=== PATIENT | female | born 1995 | race American Indian/Alaskan Native ===

== ENCOUNTER 2017-04-20 23:29 | Emergency (ER) | payer SELFPAY ==
[2017-04-21 00:04] VITALS: BP 117/72
[2017-04-21 00:42] LABS: Basophils % (Auto) 0.4 % (0.0-1.8); Eosinophils % (Auto) 1.2 % (0.0-4.3); Hematocrit 34.1 % (30.3-42.9); Hemoglobin 11.4 gm/dl (10.1-14.3); Mean Corpuscular HGB Conc 34 % (30-34); Mean Corpuscular Hemoglobin 33 pg (28-32); Mean Corpuscular Volume 97 fl (79-97); Platelet Count 329 K/mm3 (140-440); Red Blood Count 3.51 M/mm3 (3.65-5.03); Red Cell Distribution Width 12.8 % (13.2-15.2); White Blood Count 10.5 K/mm3 (4.5-11.0)
[2017-04-21 01:04] LABS: Alanine Aminotransferase 6 units/L (7-56); Albumin 4.9 g/dL (3.9-5); Albumin/Globulin Ratio 1.6 %; Alkaline Phosphatase 36 units/L (35-129); BUN/Creatinine Ratio 18; Blood Urea Nitrogen 11 mg/dL (7-17); Calcium 9.4 mg/dL (8.4-10.2); Carbon Dioxide 21 mmol/L (22-30); Glucose 125 mg/dL (65-100); Total Protein 7.9 g/dL (6.3-8.2)
[2017-04-21 01:05] LABS: Anion Gap 20 mmol/L; Lipase 25 units/L (13-60); Potassium 3.5 mmol/L (3.6-5.0); Sodium 140 mmol/L (137-145)
--- NOTE | 2017-04-21 02:17 | Ultrasound Report ---
FINAL REPORT EXAM: US OB TRANSVAGINAL HISTORY: pelvic pain, Vag bleed TECHNIQUE: Transvaginal imaging was obtained of the pelvis including Doppler interrogation of the adnexa. FINDINGS: The uterus measures 9.4 cm x 3.6 cm x 4.3 cm. The endometrial thickness is 15.4 millimeters. There is no evidence of an intrauterine gestational sac. The cervix is closed. The right ovary measures 4 cm x 1.8 cm x 3 cm and contains benign follicles. The blood flow is normal to the right ovary. There is a small amount of free fluid adjacent to the right ovary. The left ovary measures 3.8 cm x 1.9 cm x 2.9 cm. The blood flow is normal to left ovary. There are benign follicles in the left ovary. IMPRESSION: Secretory endometrium without evidence of an intrauterine . Small amount of free fluid adjacent to the right ovary. A given the positive test, and occult ectopic still cannot entirely be ruled out.
--- NOTE | 2017-04-21 02:25 | Ultrasound Report ---
FINAL REPORT EXAM: US OB < = 14 WEEKS FETUS HISTORY: pelvic pain, Vag bleed TECHNIQUE: Transabdominal imaging was obtained of the pelvis including Doppler interrogation of the adnexa FINDINGS: The uterus measures 9.4 cm x 3.6 cm x 4.3 cm. There is secretory endometrium measuring 15.4 millimeters in thickness. There is no evidence of an intrauterine gestational sac. The cervix is closed. The right ovary measures 4 cm x 1.8 cm x 3 cm. There is a small amount of free fluid adjacent to the right ovary. The right ovary otherwise reveals normal blood flow and contains benign follicles. The left ovary measures 3.8 cm x 1.9 cm x 2.9 cm and contains benign-appearing follicles. The blood flow is normal to left ovary. IMPRESSION: Thickened endometrium without evidence of intrauterine gestational sac Small amount of free fluid adjacent to the right ovary. Given the positive test, and occult ectopic cannot entirely be ruled out. Follow-up study recommended.
== END 2017-04-21 02:43 | disposition left against medical advice (07) ==
LOC: ED 23:29
DX: O46.90 Antepartum hemorrhage, unspecified, unspecified trimester (principal); Z3A.00 Weeks of gestation of pregnancy not specified; Z53.21 Procedure and treatment not carried out due to patient leaving prior to being seen by health care provider
CPT/HCPCS: 36415; 76801; 76817; 80053; 83690; 84702; 84703; 85025; 86850; 86900; 86901

== ENCOUNTER 2017-04-21 14:51 | Emergency (ER) | payer OTHER ==
[2017-04-21 15:53] LABS: Basophils % (Auto) 0.6 % (0.0-1.8); Eosinophils % (Auto) 2.2 % (0.0-4.3); Hematocrit 33.2 % (30.3-42.9); Hemoglobin 11.6 gm/dl (10.1-14.3); Mean Corpuscular HGB Conc 35 % (30-34); Mean Corpuscular Hemoglobin 34 pg (28-32); Mean Corpuscular Volume 97 fl (79-97); Platelet Count 311 K/mm3 (140-440); Red Blood Count 3.43 M/mm3 (3.65-5.03); White Blood Count 7.2 K/mm3 (4.5-11.0)
[2017-04-21] MEDS ORDERED: TYLENOL PO ONE (16:40)
--- NOTE | 2017-04-22 02:06 | Emergency Department Report ---
ED Female HPI - General Chief complaint: Abdominal Pain Stated complaint: ABD PAIN WITH BLEEDING Time Seen by Provider: 04/22/17 01:49 Source: patient Mode of arrival: Ambulatory Limitations: No Limitations - History of Present Illness Initial comments: 21 YO FEMALE WITH C/O ABDOMINAL PAIN AND VAGINAL BLEEDING. SHE TOOK TWO TEST 04/18 AND 04/19 THAT WERE POSITIVE AND PASSED LARGE TISSUE TODAY. SHE HAS CRAMPING ABDOMINAL PAIN WITH VAGINAL BLEEDING. HER PAIN WAS SEVERE YESTERDAY BUT SHE HAS VERY LITTLE PAIN TODAY. MD Complaint: vaginal bleeding -: Gradual (TODAY) Severity: moderate Severity scale (0 -10): 10 Quality: cramping Consistency: intermittent Improves with: medication (TYLENOL) Are you Now?: Yes Associated Symptoms: vaginal bleeding - Related Data Sexually active: Yes Previous Rx's Medication Instructions Recorded Last Taken Type Nitrofurantoin Atlantic/M-Cryst 100 mg PO Q12HR #14 capsule 04/22/17 Unknown Rx [Macrobid CAP] metroNIDAZOLE [Flagyl] 500 mg PO Q12HR #14 tab 04/22/17 Unknown Rx Allergies Allergy/AdvReac Type Severity Reaction Status Date / Time nut - unspecified Allergy Swelling Verified 06/15/16 23:43 ED Review of Systems ROS: Stated complaint: ABD PAIN WITH BLEEDING Other details as noted in HPI Constitutional: denies: chills, fever Eyes: denies: eye pain, eye discharge, vision change ENT: denies: ear pain, throat pain Respiratory: denies: cough, shortness of breath, wheezing Cardiovascular: denies: chest pain, palpitations Endocrine: no symptoms reported Gastrointestinal: abdominal pain. denies: nausea, vomiting, diarrhea Genitourinary: denies: urgency, dysuria, discharge Musculoskeletal: denies: back pain, joint swelling, arthralgia Skin: denies: rash, lesions Neurological: denies: headache, weakness, paresthesias Psychiatric: denies: anxiety, depression Hematological/Lymphatic: denies: easy bleeding, easy bruising ED Past Medical Hx - Past Medical History Hx Asthma: Yes - Surgical History Past Surgical History?: No - Family History Family history: hypertension - Social History Smoking Status: Never Smoker Substance Use Type: Alcohol, Marijuana - Medications Home Medications: Home Medications Medication Instructions Recorded Confirmed Last Taken Type Nitrofurantoin Atlantic/M-Cryst 100 mg PO Q12HR #14 capsule 04/22/17 Unknown Rx [Macrobid CAP] metroNIDAZOLE [Flagyl] 500 mg PO Q12HR #14 tab 04/22/17 Unknown Rx ED Physical Exam - General Limitations: No Limitations General appearance: alert, in no apparent distress - Head Head exam: Present: atraumatic, normocephalic - Eye Eye exam: Present: normal appearance - ENT ENT exam: Present: mucous membranes moist - Neck Neck exam: Present: normal inspection, full ROM - Respiratory Respiratory exam: Present: normal lung sounds bilaterally. Absent: respiratory distress - Cardiovascular Cardiovascular Exam: Present: regular rate, normal rhythm. Absent: systolic murmur, diastolic murmur, rubs, gallop - GI/Abdominal GI/Abdominal exam: Present: soft, normal bowel sounds - Rectal Rectal exam: Present: deferred - External exam: Present: normal external exam. Absent: bleeding Speculum exam: Present: vaginal bleeding. Absent: vaginal discharge, tissue Bi-manual exam: Present: normal bi-manual exam. Absent: adnexal tenderness, uterine enlargement, uterine tenderness - Extremities Exam Extremities exam: Present: normal inspection, full ROM - Back Exam Back exam: Present: normal inspection, full ROM - Neurological Exam Neurological exam: Present: alert, oriented X3, CN II-XII intact - Psychiatric Psychiatric exam: Present: normal affect, normal mood - Skin Skin exam: Present: warm, dry, intact, normal color. Absent: rash ED Course Vital Signs 04/21/17 04/22/17 04/22/17 15:15 00:07 02:43 Temperature 98.3 F 98.7 F Pulse Rate 62 73 Respiratory 16 16 20 Rate Blood Pressure 119/65 140/63 Blood Pressure [Right] O2 Sat by Pulse 100 100 Oximetry 04/22/17 02:50 Temperature 98.1 F Pulse Rate 72 Respiratory Rate Blood Pressure Blood Pressure 134/63 [Right] O2 Sat by Pulse Oximetry ED Medical Decision Making - Lab Data Result diagrams: 04/21/17 15:23 - Medical Decision Making I WILL SEND HER HOME WITH FOLLOW UP WITH HER DR OR A PUBLIC CLINIC. PT HAS ONLY MILD CRAMPING AND THE HORMONES HAS DECREAED SIGNIFICANTLY. I DO NOT THINK THIS IS AN ECTOPIC BUT WILL RECOMMEND SERIAL HORMONE STUDIES. Critical care attestation.: If time is entered above; I have spent that time in minutes in the direct care of this critically ill patient, excluding procedure time. ED Disposition Clinical Impression: Complete , Bacterial vaginosis Abdominal pain Qualifiers: Abdominal location: lower abdomen, unspecified Qualified Code(s): R10.30 - Lower abdominal pain, unspecified UTI (urinary tract infection) Qualifiers: Urinary tract infection type: acute cystitis Hematuria presence: with hematuria Qualified Code(s): N30.01 - Acute cystitis with hematuria Disposition: TO HOME OR SELFCARE Is pt being admited?: No Does the pt Need Aspirin: No Condition: Stable Instructions: Spontaneous Miscarriage (ED), Abdominal Pain (ED), Bacterial Vaginosis (ED) Additional Instructions: SEE YOUR DOCTOR OR GO TO THE PUBLIC CLINIC TO HAVE YOUR BHCG HORMONE REPEATED IN TWO DAYS YOUR HORMONE LEVEL HAS BEEN DROPPING AND THIS MEANS MOST LIKELY YOU HAVE LOST THE . YOUR HORMONE LEVEL DECREASED FROM OVER 3400 TO 1460. PLEASE MAKE SURE YOU GET A RECHECK IN TWO DAYS. RETURN TO THE HOSPITAL FOR ANY SEVERE PAIN AND BLEEDING OTHERWISE SEE YOUR DOCTOR Prescriptions: metroNIDAZOLE [Flagyl] 500 mg PO Q12HR #14 tab Nitrofurantoin Atlantic/M-Cryst [Macrobid CAP] 100 mg PO Q12HR #14 capsule Referrals: PRIMARY CARE, [Primary Care Provider] - 3-5 Days [facility] [Outside] - 3-5 Days [facility] [Outside] - 3-5 Days [facility] [Outside] - 3-5 Days [facility] [Outside] - 3-5 Days Forms: STI Treatment and Prevention Time of Disposition: 05:28
[2017-04-22 02:50] VITALS: BP 134/63
[2017-04-22 03:41] LABS: Bacteria,Urine 1+ /HPF (Negative); Bilirubin,Urine NEG (Negative); Blood,Urine LG (Negative); Ketones,Urine 80 mg/dL (Negative); Leukocyte Esterase,Urine SM (Negative); Mucus,Urine 3+ /HPF; Nitrite,Urine POS (Negative)
[2017-04-22 03:42] LABS: RBC,Urine > 182.0 /HPF (0.0-6.0)
[2017-04-22] MEDS ORDERED: XYLOCAINE 1% MPF 5 mL INFILTRATI ONE (05:24)
[2017-04-22] MEDS ORDERED: ROCEPHIN IM ONE (05:24)
[2017-04-22] MEDS ORDERED: XYLOCAINE 1% 20 mL ONE (05:34)
== END 2017-04-22 06:01 | disposition home or self-care (01) ==
LOC: ED 14:51
DX: O03.9 Complete or unspecified spontaneous abortion without complication (principal); O23.10 Infections of bladder in pregnancy, unspecified trimester; O23.599 Infection of other part of genital tract in pregnancy, unspecified trimester; B96.89 Other specified bacterial agents as the cause of diseases classified elsewhere; O99.519 Diseases of the respiratory system complicating pregnancy, unspecified trimester; J45.909 Unspecified asthma, uncomplicated; O99.320 Drug use complicating pregnancy, unspecified trimester; F12.10 Cannabis abuse, uncomplicated; Z91.018 Allergy to other foods; Z3A.00 Weeks of gestation of pregnancy not specified
CPT/HCPCS: 36415; 81001; 84702; 85025; 86850; 86900; 86901; 87210; 87591; 96372; 99284; J0696